=== PATIENT | male | born 1970 | race Caucasian/White ===

== ENCOUNTER 2016-06-03 13:40 | Outpatient (CLI) | payer MEDICAID | END 2016-06-03 13:41 | disposition home or self-care (01) | DX: R07.89 Other chest pain (principal); R91.8 Other nonspecific abnormal finding of lung field ==

== ENCOUNTER 2016-06-10 12:40 | Outpatient (CLI) | payer MEDICAID | END 2016-06-10 12:41 | DX: R07.89 Other chest pain (principal) ==

== ENCOUNTER 2016-06-22 11:20 | Outpatient (CLI) | payer MEDICAID | END 2016-06-22 11:21 | disposition home or self-care (01) | DX: R07.89 Other chest pain (principal); J43.9 Emphysema, unspecified ==

== ENCOUNTER 2017-06-14 11:22 | Outpatient (CLI) | payer MEDICAID ==
[2017-06-14 18:54] LABS: BASOPHILS % (AUTO) 0.3 %; EOSINOPHILS # (AUTO) 0.2 10^3/uL (0.0-0.7); EOSINOPHILS % (AUTO) 2.7 %; HGB - HEMOGLOBIN 16.2 g/dL (14.0-18.0); LYMPHOCYTES # (AUTO) 2.3 10^3/uL (1.5-3.5); MEAN CORPUSCULAR HEMOGLOBIN 31.8 pg (27.0-31.0); MEAN CORPUSCULAR HGB CONC 32.9 g/dL (32.0-36.0); MEAN CORPUSCULAR VOLUME 96.5 fL (80.0-94.0); MEAN PLATELET VOLUME 8.4 fL (7.4-11.4); MONOCYTES # (AUTO) 0.7 10^3/uL (0.0-1.0); MONOCYTES % (AUTO) 8.7 %; NEUTROPHILS # (AUTO) 5.2 10^3/uL (1.5-6.6); NEUTROPHILS % (AUTO) 61.3 %; PLT - PLATELET COUNT 244 10^3/uL (130-450); RED CELL DISTRIBUTION WIDTH 13.5 % (12.0-15.0); WHITE BLOOD COUNT 8.6 x10^3/uL (4.8-10.8)
[2017-06-14 19:16] LABS: ALBUMIN 4.9 g/dL (3.2-5.5); ALBUMIN/GLOBULIN RATIO 1.6 (1.0-2.2); ALKALINE PHOSPHATASE 50 IU/L (42-121); ALT ALANINE AMINOTRANSFERASE 35 IU/L (10-60); AST ASPARTATE AMINOTRANSFERASE 40 IU/L (10-42); BILIRUBIN,TOTAL 1.1 mg/dL (0.2-1.0); BUN - BLOOD UREA NITROGEN 9 mg/dL (6-20); CALCIUM 9.3 mg/dL (8.5-10.3); CARBON DIOXIDE - CO2 28 mmol/L (21-32); CHLORIDE 100 mmol/L (101-111); CHOLESTEROL 259 mg/dL; CREATININE 0.9 mg/dL (0.6-1.2); GFR - MDRD 90 (>89); GLUCOSE 99 mg/dL (70-100); HDL CHOLESTEROL 64 mg/dL; LDL CHOLESTEROL,CALCULATED 171 mg/dL; LDL/HDL RATIO 2.7 (<3.6); SODIUM 139 mmol/L (135-145); TOTAL PROTEIN 7.9 g/dL (6.7-8.2); VLDL CHOLESTEROL 24 mg/dL
== END 2017-06-14 11:23 | disposition home or self-care (01) ==
LOC: LAB.F 11:22
PROVIDERS: ATTEND Nurse Practitioner Family
DX: F10.20 Alcohol dependence, uncomplicated (principal); Z13.6 Encounter for screening for cardiovascular disorders; D72.829 Elevated white blood cell count, unspecified
CPT/HCPCS: 36415; 80053; 80061; 83721; 84443; 85025

== ENCOUNTER 2017-07-28 14:09 | Outpatient (CLI) | payer MEDICAID ==
[2017-07-28 18:23] LABS: ALBUMIN/GLOBULIN RATIO 1.3 (1.0-2.2); BILIRUBIN,TOTAL 0.8 mg/dL (0.2-1.0); CALCIUM 8.8 mg/dL (8.5-10.3); CREATININE 0.6 mg/dL (0.6-1.2); TOTAL PROTEIN 7.2 g/dL (6.7-8.2)
== END 2017-07-28 14:10 | disposition home or self-care (01) ==
LOC: LAB.F 14:09
PROVIDERS: ATTEND Nurse Practitioner Family
DX: E78.5 Hyperlipidemia, unspecified (principal)
CPT/HCPCS: 36415; 80053

== ENCOUNTER 2017-12-17 11:49 | Outpatient (CLI) | payer MEDICAID ==
[2017-12-17 18:11] LABS: ALBUMIN 4.3 g/dL (3.2-5.5); ALBUMIN/GLOBULIN RATIO 1.4 (1.0-2.2); ALKALINE PHOSPHATASE 62 IU/L (42-121); ALT ALANINE AMINOTRANSFERASE 40 IU/L (10-60); AST ASPARTATE AMINOTRANSFERASE 40 IU/L (10-42); BUN - BLOOD UREA NITROGEN 8 mg/dL (6-20); CHOL/HDL RATIO 3.6 (<5.0); CHOLESTEROL 250 mg/dL; CREATININE 0.3 mg/dL (0.6-1.2); GFR - MDRD 321 (>89); HDL CHOLESTEROL 70 mg/dL; LDL CHOLESTEROL,CALCULATED 147 mg/dL; LDL/HDL RATIO 2.1 (<3.6); TOTAL PROTEIN 7.4 g/dL (6.7-8.2); VLDL CHOLESTEROL 33 mg/dL
[2017-12-17 18:17] LABS: CALCIUM 8.8 mg/dL (8.5-10.3); CARBON DIOXIDE - CO2 25 mmol/L (21-32); CHLORIDE 102 mmol/L (101-111); GLUCOSE 114 mg/dL (70-100); SODIUM 137 mmol/L (135-145)
== END 2017-12-17 11:50 | disposition home or self-care (01) ==
LOC: LAB.F 11:49
PROVIDERS: ATTEND Nurse Practitioner Family
DX: E78.5 Hyperlipidemia, unspecified (principal)
CPT/HCPCS: 36415; 80053; 80061; 83721

== ENCOUNTER 2018-03-02 12:15 | Outpatient (CLI) | payer MEDICAID | END 2018-03-02 12:16 | disposition home or self-care (01) | LOC: RT.S 12:15 | PROVIDERS: ATTEND Nurse Practitioner Family | DX: R00.2 Palpitations (principal) | CPT/HCPCS: 93005 ==

== ENCOUNTER 2018-03-02 14:01 | Emergency (ER) | payer MEDICAID ==
[2018-03-02 14:38] LABS: BASOPHILS # (AUTO) 0.1 10^3/uL (0.0-0.1); BASOPHILS % (AUTO) 0.7 %; EOSINOPHILS # (AUTO) 0.1 10^3/uL (0.0-0.7); EOSINOPHILS % (AUTO) 1.2 %; HGB - HEMOGLOBIN 14.6 g/dL (14.0-18.0); LYMPHOCYTES # (AUTO) 2.9 10^3/uL (1.5-3.5); LYMPHOCYTES % (AUTO) 26.3 %; MEAN CORPUSCULAR HEMOGLOBIN 32.7 pg (27.0-31.0); MEAN CORPUSCULAR HGB CONC 34.4 g/dL (32.0-36.0); MEAN CORPUSCULAR VOLUME 94.8 fL (80.0-94.0); MEAN PLATELET VOLUME 7.8 fL (7.4-11.4); MONOCYTES # (AUTO) 0.9 10^3/uL (0.0-1.0); MONOCYTES % (AUTO) 8.4 %; NEUTROPHILS % (AUTO) 63.4 %; PLT - PLATELET COUNT 215 10^3/uL (130-450); RED BLOOD COUNT 4.48 10^6/uL (4.70-6.10); RED CELL DISTRIBUTION WIDTH 12.7 % (12.0-15.0); WHITE BLOOD COUNT 11.1 x10^3/uL (4.8-10.8)
[2018-03-02 14:50] LABS: ALBUMIN 4.5 g/dL (3.2-5.5); ALBUMIN/GLOBULIN RATIO 1.4 (1.0-2.2); BILIRUBIN,TOTAL 0.6 mg/dL (0.2-1.0); CALCIUM 9.1 mg/dL (8.5-10.3); CREATININE 0.6 mg/dL (0.6-1.2); TOTAL PROTEIN 7.8 g/dL (6.7-8.2)
--- NOTE | 2018-03-02 15:59 | ED Physician Documentation ---
PD HPI CHEST PAIN - Stated complaint Stated Complaint: LEG PX/RAPID HR - Chief complaint Chief Complaint: Cardiac - History obtained from History obtained from: Patient - History of Present Illness Timing - onset: How many days ago Timing - onset during: Light activity Timing - duration: Days PD PAST MEDICAL HISTORY - Past Medical History Respiratory: COPD GI: GERD Psych: Depression - Past Surgical History Past Surgical History: No - Present Medications Home Medications: Ambulatory Orders Medication Instructions Recorded Confirmed Omeprazole 20 mg PO DAILY 06/01/14 03/02/18 buPROPion [Wellbutrin Xl] 150 mg PO DAILY 06/01/14 03/02/18 Albuterol Sulfate [Proair Hfa] 1 puffs IS PRN PRN 08/20/14 03/02/18 Beclomethasone 40 Mcg [Qvar 40] 1 puffs IS PRN PRN 08/20/14 03/02/18 ALPRAZolam [Alprazolam] 0.5 tab PO PRN PRN 03/02/18 03/02/18 Aspirin [Adult Low Dose Aspirin EC] 81 mg PO DAILY #30 tablet. 03/02/18 Dexamethasone [Decadron] 4 mg PO DAILY #5 tablet 03/02/18 Metoprolol Tartrate 25 mg PO DAILY #30 tablet 03/02/18 - Allergies Allergies/Adverse Reactions: Allergies Allergy/AdvReac Type Severity Reaction Status Date / Time No Known Drug Allergies Allergy Verified 03/02/18 14:25 - Social History Does the pt smoke?: Yes Smoking Status: Current every day smoker Does the pt drink ETOH?: Yes Does the pt have substance abuse?: Yes - Immunizations Immunizations are current?: Yes - POLST Patient has POLST: No Results - Vitals Vitals: Oxygen O2 Source Room air - Labs Labs: Laboratory Tests 03/02/18 03/02/18 03/02/18 14:33 14:33 14:33 WBC 11.1 H RBC 4.48 L Hgb 14.6 Hct 42.5 MCV 94.8 H MCH 32.7 H MCHC 34.4 RDW 12.7 Plt Count 215 MPV 7.8 Neut # (Auto) 7.0 H Lymph # (Auto) 2.9 [place] # (Auto) 0.9 Eos # (Auto) 0.1 Baso # (Auto) 0.1 Absolute Nucleated RBC 0.00 Nucleated RBC % 0.0 D-Dimer Sodium 134 L Potassium 3.4 L Chloride 102 Carbon Dioxide 21 Anion Gap 11.0 BUN 7 Creatinine 0.6 Estimated GFR (MDRD) 144 Glucose 120 H Calcium 9.1 Magnesium Total Bilirubin 0.6 AST 46 H ALT 63 H Alkaline Phosphatase 57 Troponin I < 0.04 B-Natriuretic Peptide Total Protein 7.8 Albumin 4.5 Globulin 3.3 Albumin/Globulin Ratio 1.4 Lipase 63 H 03/02/18 03/02/18 03/02/18 14:33 14:33 14:33 WBC RBC Hgb Hct MCV MCH MCHC RDW Plt Count MPV Neut # (Auto) Lymph # (Auto) [place] # (Auto) Eos # (Auto) Baso # (Auto) Absolute Nucleated RBC Nucleated RBC % D-Dimer < 200.0 L Sodium Potassium Chloride Carbon Dioxide Anion Gap BUN Creatinine Estimated GFR (MDRD) Glucose Calcium Magnesium 2.4 Total Bilirubin AST ALT Alkaline Phosphatase Troponin I B-Natriuretic Peptide 19 Total Protein Albumin Globulin Albumin/Globulin Ratio Lipase Departure - Departure Disposition: Home, Self Care Clinical Impression: Exertional dyspnea Condition: Stable Record reviewed to determine appropriate education?: Yes Instructions: ED Dyspnea Shortness of Breath Follow-Up: Nina Gordon ARNP [Primary Care Provider] - Prescriptions: Aspirin [Adult Low Dose Aspirin EC] 81 mg PO DAILY #30 tablet. Dexamethasone [Decadron] 4 mg PO DAILY #5 tablet Metoprolol Tartrate 25 mg PO DAILY #30 tablet Comments: There are no signs of heart attack or acute heart disease or heart failure here. Your lungs look clear as well based on your x-ray. You your dyspnea may be related to your COPD and so continue your normal inhalers and add Decadron steroid daily for the next 5 days and see if that helps. The concern is that it might be angina or heart disease and that would require further testing such as a stress test and ultrasound of the heart (echo). These would need to get set up outpatient by your primary care physician or potentially a referral to a film loader. Call your primary care clinic tomorrow to have them set up outpatient testing for stress test and echocardiogram to better evaluate if there is any heart disease at all. In case there is some heart disease, will treat initially with an aspirin and metoprolol daily until further evaluation. Discharge Date/Time: 03/02/18 18:31
[2018-03-02] MEDS ORDERED: METOPROLOL 5 MG/5 ML VIAL IVP STA (16:28)
[2018-03-02] MEDS ORDERED: KETOROLAC 30 MG/ML VIAL IVP STA (16:28)
--- NOTE | 2018-03-02 16:55 | XRAY Report ---
Reason: NICOLE, sob Procedure Date: 03/02/2018 Accession Number: [id number] / [id number] Procedure: XR - Chest 1 View X-Ray CPT Code: 99697 FULL RESULT: EXAM: CHEST RADIOGRAPHY EXAM DATE: 03/02/2018 04:38 PM. CLINICAL HISTORY: Chest pain. Shortness of breath. COMPARISON: [facility]BS W/PA CHEST RT 08/20/2014 2:24 PM CHEST W/O 06/22/2016 11:31 AM. TECHNIQUE: 1 view. FINDINGS: Cardiac leads overlie the chest. Heart size is normal. Small calcified plaques in the aortic arch. No consolidation, pleural effusion, or pneumothorax. Probable nipple shadow projecting over the left lung base. IMPRESSION: No acute cardiopulmonary findings. RADIA
[2018-03-02] MEDS ORDERED: METOPROLOL TARTRATE 50 MG TABLET PO STA (18:05)
[2018-03-02] MEDS ORDERED: ASPIRIN EC 81 MG TABLET PO STA (18:05)
[2018-03-02 18:24] VITALS: BP 121/91
== END 2018-03-02 18:31 | disposition home or self-care (01) ==
LOC: ED 14:01
DX: R06.09 Other forms of dyspnea (principal); R00.0 Tachycardia, unspecified; R00.2 Palpitations; F17.200 Nicotine dependence, unspecified, uncomplicated; Z79.82 Long term (current) use of aspirin
CPT/HCPCS: 36415; 71045; 80053; 83690; 83735; 83880; 84484; 85025; 85379; 93005; 96374; 96375; 99283; 99284; A9270

== ENCOUNTER 2018-04-06 09:18 | Outpatient (CLI) | payer MEDICAID | END 2018-04-06 09:19 | disposition home or self-care (01) | LOC: DI 09:18 | PROVIDERS: ATTEND Nurse Practitioner Family | DX: R07.89 Other chest pain (principal) | CPT/HCPCS: 93306 ==

== ENCOUNTER 2018-05-03 13:15 | Emergency (ER) | payer MEDICAID ==
[2018-05-03 13:39] LABS: BILIRUBIN,URINE NEGATIVE (NEGATIVE); CLARITY,URINE CLEAR (CLEAR); GLUCOSE, URINE (UA) NEGATIVE (NEGATIVE); KETONES,URINE (UA) NEGATIVE (NEGATIVE); LEUKOCYTE ESTERASE, URINE NEGATIVE (NEGATIVE); NITRITE,URINE NEGATIVE (NEGATIVE); OCCULT BLOOD,URINE NEGATIVE (NEGATIVE); PROTEIN,URINE NEGATIVE (NEGATIVE); UROBILINOGEN,URINE 0.2 (NORMAL) E.U./dL (NORMAL)
[2018-05-03 13:47] LABS: BASOPHILS # (AUTO) 0.1 10^3/uL (0.0-0.1); BASOPHILS % (AUTO) 0.7 %; EOSINOPHILS # (AUTO) 0.1 10^3/uL (0.0-0.7); EOSINOPHILS % (AUTO) 1.1 %; HGB - HEMOGLOBIN 15.3 g/dL (14.0-18.0); LYMPHOCYTES # (AUTO) 2.2 10^3/uL (1.5-3.5); MEAN CORPUSCULAR HEMOGLOBIN 32.8 pg (27.0-31.0); MEAN CORPUSCULAR HGB CONC 34.6 g/dL (32.0-36.0); MEAN CORPUSCULAR VOLUME 94.8 fL (80.0-94.0); MEAN PLATELET VOLUME 7.7 fL (7.4-11.4); MONOCYTES # (AUTO) 0.8 10^3/uL (0.0-1.0); MONOCYTES % (AUTO) 7.6 %; NEUTROPHILS # (AUTO) 6.9 10^3/uL (1.5-6.6); NEUTROPHILS % (AUTO) 68.6 %; PLT - PLATELET COUNT 222 10^3/uL (130-450); RED BLOOD COUNT 4.66 10^6/uL (4.70-6.10); RED CELL DISTRIBUTION WIDTH 13.1 % (12.0-15.0); WHITE BLOOD COUNT 10.1 x10^3/uL (4.8-10.8)
[2018-05-03 14:00] LABS: ALBUMIN 4.5 g/dL (3.2-5.5); ALBUMIN/GLOBULIN RATIO 1.4 (1.0-2.2); BILIRUBIN,TOTAL 0.7 mg/dL (0.2-1.0); CALCIUM 9.1 mg/dL (8.5-10.3); CREATININE 0.6 mg/dL (0.6-1.2); TOTAL PROTEIN 7.7 g/dL (6.7-8.2)
--- NOTE | 2018-05-03 15:17 | ED Physician Documentation ---
History of Present Illness - Stated complaint Stated Complaint: UPPER RT SIDE PX/SOA - Chief complaint Chief Complaint: Abd Pain - Additonal information Additional information: 48-year-old male presents the emergency department with complaints of right upper quadrant painWhich have progressively worsened. The patient reports increased pain with movement. The patient denies any recent trauma or injury. The patient denies fevers, cough. The pain radiates into his lower abdomen. Patient denies hematuria. Symptoms are described as moderate. No other associated symptoms Review of Systems Constitutional: denies: Fever, Chills, Fatigue Eyes: denies: Discharge Ears: denies: Ear pain Nose: denies: Congestion Throat: denies: Sore throat Cardiac: denies: Chest pain / pressure Respiratory: denies: Dyspnea GI: reports: Abdominal Pain : denies: Dysuria Skin: denies: Rash Musculoskeletal: denies: Neck pain Neurologic: denies: Generalized weakness PD PAST MEDICAL HISTORY - Past Medical History Respiratory: COPD GI: GERD Psych: Depression - Past Surgical History Past Surgical History: No - Present Medications Home Medications: Ambulatory Orders Medication Instructions Recorded Confirmed Omeprazole 20 mg PO DAILY 06/01/14 03/02/18 buPROPion [Wellbutrin Xl] 150 mg PO DAILY 06/01/14 03/02/18 Albuterol Sulfate [Proair Hfa] 1 puffs IS PRN PRN 08/20/14 03/02/18 Beclomethasone 40 Mcg [Qvar 40] 1 puffs IS PRN PRN 08/20/14 03/02/18 ALPRAZolam [Alprazolam] 0.5 tab PO PRN PRN 03/02/18 03/02/18 Aspirin [Adult Low Dose Aspirin EC] 81 mg PO DAILY #30 tablet. 03/02/18 Dexamethasone [Decadron] 4 mg PO DAILY #5 tablet 03/02/18 Metoprolol Tartrate 25 mg PO DAILY #30 tablet 03/02/18 Hydrocodone/Acetaminophen [[place] 1 each PO Q6HR PRN #10 tablet 05/03/18 5-325 Tablet] - Allergies Allergies/Adverse Reactions: Allergies Allergy/AdvReac Type Severity Reaction Status Date / Time No Known Drug Allergies Allergy Verified 05/03/18 13:30 - Social History Does the pt smoke?: Yes Smoking Status: Current every day smoker Does the pt drink ETOH?: Yes Does the pt have substance abuse?: Yes - Immunizations Immunizations are current?: Yes - POLST Patient has POLST: No PD ED PE NORMAL - General General: Alert and oriented X 3, No acute distress - HEENT HEENT: Atraumatic, PERRL, EOMI, Ears normal, Pharynx benign - Cardiac Cardiac: RRR, Strong equal pulses - Respiratory Respiratory: No respiratory distress - Abdomen Abdomen: Soft, Non distended. No: Non tender (Tender palpation in the right upper abdomen, no rebound or peritoneal signs) - Derm Derm: Normal color - Extremities Extremities: No deformity - Neuro Neuro: Alert and oriented X 3, Normal speech - Psych Psych: Normal affect Results - Vitals Vitals: Vital Signs - 24 hr 05/03/18 05/03/18 05/03/18 13:24 16:02 16:45 Temperature 36.6 C Heart Rate 89 82 79 Respiratory 16 20 18 Rate Blood Pressure 131/89 H 143/90 H 121/84 H O2 Saturation 97 94 97 Oxygen O2 Source Room air - Labs Labs: Laboratory Tests 05/03/18 05/03/18 05/03/18 13:22 13:44 13:44 WBC 10.1 RBC 4.66 L Hgb 15.3 Hct 44.2 MCV 94.8 H MCH 32.8 H MCHC 34.6 RDW 13.1 Plt Count 222 MPV 7.7 Neut # (Auto) 6.9 H Lymph # (Auto) 2.2 [place] # (Auto) 0.8 Eos # (Auto) 0.1 Baso # (Auto) 0.1 Absolute Nucleated RBC 0.00 Nucleated RBC % 0.0 Sodium 134 L Potassium 3.5 Chloride 101 Carbon Dioxide 23 Anion Gap 10.0 BUN 5 L Creatinine 0.6 Estimated GFR (MDRD) 144 Glucose 113 H Calcium 9.1 Total Bilirubin 0.7 AST 55 H ALT 50 Alkaline Phosphatase 68 Total Protein 7.7 Albumin 4.5 Globulin 3.2 Albumin/Globulin Ratio 1.4 Lipase 80 H Urine Color YELLOW Urine Clarity CLEAR Urine pH 6.0 Ur Specific [place] <=1.005 Urine Protein NEGATIVE Urine Glucose (UA) NEGATIVE Urine Ketones NEGATIVE Urine Occult Blood NEGATIVE Urine Nitrite NEGATIVE Urine Bilirubin NEGATIVE Urine Urobilinogen 0.2 (NORMAL) Ur Leukocyte Esterase NEGATIVE Ur Microscopic Review NOT INDICATED Urine Culture Comments NOT INDICATED - Rads (name of study) CT abd/pelvis Radiology: Final report received, See rad report (1. No evidence of appendicitis or bowel obstruction. 2. There is hepatic steatosis. 3. There are atheromatous calcifications of the low aorta, renal arteries, and iliac arteries. 4. There is moderatedistention of the urinary bladder) PD MEDICAL DECISION MAKING - ED course ED course: No significant abnormality on the patient's workup that would necessitate admission to the hospital or acute consultation. Presently the patient appears appropriate for discharge and ongoing outpatient management. I discussed the findings with the patient who understands and agrees. The patient will return to the emergency department immediately for any worsening or any concerns. I discussed the incidental findings and recommended ongoing follow-up with primary care Departure - Departure Disposition: 01 Home, Self Care Clinical Impression: RUQ pain, Fatty liver, Aortic calcification Condition: Good Instructions: ED Abdominal Pain Unkn Cause, ED Strain Chest Wall Ch Follow-Up: Francine Moreno DNP [Primary Care Provider] - Within 1 week Prescriptions: Hydrocodone/Acetaminophen [[place] 5-325 Tablet] 1 each PO Q6HR PRN #10 tablet PRN Reason: Pain Comments: Please return to the emergency department for any worsening or any concerns
[2018-05-03] MEDS ORDERED: fentaNYL 100 MCG/2 ML VIAL IVP STA (15:27)
[2018-05-03] MEDS ORDERED: SODIUM CHLORIDE 0.9% 1,000 ML IV ONE (15:27)
[2018-05-03] MEDS ORDERED: ONDANSETRON 4 MG/2 ML VIAL IVP STA (15:27)
[2018-05-03] MEDS ORDERED: IOPAMIDOL-300 100 ML VIAL ONE (15:36)
--- NOTE | 2018-05-03 16:29 | CT Report ---
Reason: ruq pain Procedure Date: 05/03/2018 Accession Number: [id number] / [id number] Procedure: CT - Abdomen/Pelvis W CPT Code: FULL RESULT: EXAM: CT ABDOMEN AND PELVIS EXAM DATE: 05/03/2018 04:02 PM. CLINICAL HISTORY: Abdominal pain COMPARISONS: ABDOMEN/PELVIS W/O 04/20/2015 1:38 AM. TECHNIQUE: Routine helical CT imaging was performed through the abdomen and pelvis. IV contrast: ISOVUE 300 100mL. Enteric contrast: No. Reconstructions: Coronal and sagittal. In accordance with CT protocol optimization, one or more of the following dose reduction techniques were utilized for this exam: automated exposure control, adjustment of mA and/or KV based on patient size, or use of iterative reconstructive technique. FINDINGS: Lung Bases: Unremarkable. Liver: There is hepatic steatosis. No focal hepatic lesions are seen. Gallbladder/Bile Ducts: Unremarkable. Spleen: Normal. Pancreas: Normal. Adrenal Glands: Normal. Kidneys: Normal. No masses or hydronephrosis. Peritoneal Cavity/Bowel: Normal. No free fluid, free air or adenopathy. No masses or acute inflammatory process. The appendix is well visualized and normal. Pelvic Organs: There is moderate distention of the urinary bladder. Prostate and seminal vesicles are unremarkable. There are no enlarged pelvic lymph nodes. Vasculature: There are atheromatous calcifications of the aorta and iliac vessels. Bones: No acute bony abnormalities are seen. There is lower lumbar spine degenerative disease. Other: None. IMPRESSION: 1. No evidence of appendicitis or bowel obstruction. 2. There is hepatic steatosis. 3. There are atheromatous calcifications of the low aorta, renal arteries, and iliac arteries. 4. There is moderate distention of the urinary bladder. RADIA
[2018-05-03 16:46] VITALS: BP 121/84
[2018-05-03] MEDS ORDERED: HYDROcod/ACETAM 5/325 MG TABLET PO STA (16:57)
[2018-05-03] MEDS ORDERED: IOPAMIDOL-300 100 ML VIAL IVP ONE (18:13)
== END 2018-05-03 17:16 | disposition home or self-care (01) ==
LOC: ED 13:15
DX: R10.11 Right upper quadrant pain (principal); K76.0 Fatty (change of) liver, not elsewhere classified; I70.0 Atherosclerosis of aorta; F17.200 Nicotine dependence, unspecified, uncomplicated; K21.9 Gastro-esophageal reflux disease without esophagitis; Z79.82 Long term (current) use of aspirin
CPT/HCPCS: 36415; 74177; 80053; 81003; 83690; 85025; 96361; 96374; 99284; A9270; Q9967; 81001; 87086

== ENCOUNTER 2018-07-19 19:13 | Emergency (ER) | payer MEDICAID ==
--- NOTE | 2018-07-19 19:40 | ED Physician Documentation ---
History of Present Illness - Stated complaint Stated Complaint: FAINTING - Chief complaint Chief Complaint: Cardiac - History obtained from History obtained from: Patient - History of Present Illness Timing: Unknown - Additonal information Additional information: This is a 48-year-old man who presents with his mother. He tells me he is having problems in his lower abdomen, mid chest, stomach, bladder. In addition to these problems he is having diarrhea that is been for ever and ever sometimes to the point that it water. He is urinating a lot and it turned orange today. He feels a tickling [id number] sensation all over his head and head along with a headache on the left side of his head he feels so dizzy and lightheaded when he stands up in the middle of the night that he thinks he is going to pass out. He has not asked actually lost consciousness. He is feeling electrical shocks that passed all through his body. He denies a history of anemia in the past. He does state that he is been heavy alcohol drinker for the past 8 years But he is now cut back to 10-14 beers a day. He has been diagnosed with neuropathy by a neurologist 8 years ago and he has had uncontrollable twitchings that he thought was related to Christy Gehrig's disease but was ruled out by the neurologist. Patient also has a history of esophagitis and has been on omep razole for 4 years he was referred for endoscopy because he of these above complaints and the referral referral physician will not see him because of an unpaid bill so he is looking for another gastroneurologist.He has had 2 colon endoscopies in the past with polyp removals. Review of Systems Constitutional: denies: Fever Throat: denies: Sore throat Cardiac: denies: Chest pain / pressure Respiratory: reports: Dyspnea, Cough, Wheezing GI: reports: Abdominal Pain, Nausea. denies: Vomiting : reports: Frequency, Other (Dark orange appearing urine) Skin: denies: Rash Neurologic: reports: Headache, Other (Electrical shocks through his body and history of neuropathy). denies: Syncope PD PAST MEDICAL HISTORY - Past Medical History Respiratory: COPD GI: GERD Psych: Depression - Past Surgical History Past Surgical History: No - Present Medications Home Medications: Ambulatory Orders Medication Instructions Recorded Confirmed Omeprazole 20 mg PO DAILY 06/01/14 03/02/18 buPROPion [Wellbutrin Xl] 150 mg PO DAILY 06/01/14 03/02/18 Albuterol Sulfate [Proair Hfa] 1 puffs IS PRN PRN 08/20/14 03/02/18 Beclomethasone 40 Mcg [Qvar 40] 1 puffs IS PRN PRN 08/20/14 03/02/18 ALPRAZolam [Alprazolam] 0.5 tab PO PRN PRN 03/02/18 03/02/18 Aspirin [Adult Low Dose Aspirin EC] 81 mg PO DAILY #30 tablet. 03/02/18 Metoprolol Tartrate 25 mg PO DAILY #30 tablet 03/02/18 dexAMETHasone [Decadron] 4 mg PO DAILY #5 tablet 03/02/18 Hydrocodone/Acetaminophen [[place] 1 each PO Q6HR PRN #10 tablet 05/03/18 5-325 Tablet] - Allergies Allergies/Adverse Reactions: Allergies Allergy/AdvReac Type Severity Reaction Status Date / Time No Known Drug Allergies Allergy Verified 05/03/18 13:30 - Social History Does the pt smoke?: Yes Smoking Status: Current every day smoker Does the pt drink ETOH?: Yes Does the pt have substance abuse?: Yes - Immunizations Immunizations are current?: Yes - POLST Patient has POLST: No PD ED PE NORMAL - Vitals Vital signs reviewed: Yes (Smells strongly of EtoH) - General General: Alert and oriented X 3, No acute distress, Well developed/nourished - HEENT HEENT: Atraumatic, PERRL, EOMI, Moist mucous membranes - Neck Neck: No adenopathy - Cardiac Cardiac: RRR, No murmur - Respiratory Respiratory: No respiratory distress - Abdomen Abdomen: Normal bowel sounds, Soft, Other (Liver is enlarged and 5-6 cm below costal margin. + tenderness) - Derm Derm: Normal color, No rash - Neuro Neuro: Alert and oriented X 3, field marketing manager 2-12 intact, No motor deficit, No sensory deficit, Normal speech - Psych Psych: Normal mood, Normal affect Results - Vitals Vitals: Vital Signs - 24 hr 07/19/18 19:18 Temperature 36.3 C L Heart Rate 94 Respiratory 16 Rate Blood Pressure 145/95 H O2 Saturation 99 Oxygen O2 Source Room air - EKG (time done) 1928 Rate: Rate (enter#) Rhythm: Sinus tachycardia (With sinus arrhythmia) Intervals: Normal [place]. No: Wide QRS Ischemia: Non specific changes Other comments: Other comments (There is some baseline artifact.) Compare to prior EKG: Old EKG unavailable - Labs Labs: Laboratory Tests 07/19/18 07/19/18 07/19/18 19:34 19:34 19:34 WBC 7.9 RBC 4.65 L Hgb 15.0 Hct 44.0 MCV 94.6 H MCH 32.2 H MCHC 34.1 RDW 13.2 Plt Count 145 MPV 8.4 Neut # (Auto) 4.4 Lymph # (Auto) 2.5 [place] # (Auto) 0.9 Eos # (Auto) 0.2 Baso # (Auto) 0.0 Absolute Nucleated RBC 0.01 Nucleated RBC % 0.1 Sodium 131 L Potassium 3.1 L Chloride 95 L Carbon Dioxide 22 Anion Gap 14.0 H BUN 5 L Creatinine 0.7 Estimated GFR (MDRD) 120 Glucose 85 Calcium 9.0 Phosphorus Magnesium Total Bilirubin 1.1 H AST 254 H ALT 189 H Alkaline Phosphatase 82 Troponin I < 0.04 Total Protein 7.5 Albumin 4.3 Globulin 3.2 Albumin/Globulin Ratio 1.3 Lipase 100 H Urine Color Urine Clarity Urine pH Ur Specific [place] Urine Protein Urine Glucose (UA) Urine Ketones Urine Occult Blood Urine Nitrite Urine Bilirubin Urine Urobilinogen Ur Leukocyte Esterase Urine RBC Urine WBC Ur Squamous Epith Cells Urine Bacteria Ur Microscopic Review Urine Culture Comments Urine Opiates Screen Ur Oxycodone Screen Urine Methadone Screen Ur Propoxyphene Screen Ur Barbiturates Screen Ur Tricyclics Screen Ur Phencyclidine Scrn Ur Amphetamine Screen U Methamphetamines Scrn U Benzodiazepines Scrn Urine Cocaine Screen U Cannabinoids Screen Ethyl Alcohol 07/19/18 07/19/18 19:34 20:30 WBC RBC Hgb Hct MCV MCH MCHC RDW Plt Count MPV Neut # (Auto) Lymph # (Auto) [place] # (Auto) Eos # (Auto) Baso # (Auto) Absolute Nucleated RBC Nucleated RBC % Sodium Potassium Chloride Carbon Dioxide Anion Gap BUN Creatinine Estimated GFR (MDRD) Glucose Calcium Phosphorus 3.6 Magnesium 1.9 Total Bilirubin AST ALT Alkaline Phosphatase Troponin I Total Protein Albumin Globulin Albumin/Globulin Ratio Lipase Urine Color YELLOW Urine Clarity CLEAR Urine pH 6.0 Ur Specific [place] <=1.005 Urine Protein NEGATIVE Urine Glucose (UA) NEGATIVE Urine Ketones NEGATIVE Urine Occult Blood NEGATIVE Urine Nitrite NEGATIVE Urine Bilirubin NEGATIVE Urine Urobilinogen 0.2 (NORMAL) Ur Leukocyte Esterase NEGATIVE Urine RBC None Seen Urine WBC 0-3 Ur Squamous Epith Cells RARE Squamous Urine Bacteria None Seen Ur Microscopic Review NOT INDICATED Urine Culture Comments NOT INDICATED Urine Opiates Screen NEGATIVE Ur Oxycodone Screen NEGATIVE Urine Methadone Screen NEGATIVE Ur Propoxyphene Screen NEGATIVE Ur Barbiturates Screen NEGATIVE Ur Tricyclics Screen NEGATIVE Ur Phencyclidine Scrn NEGATIVE Ur Amphetamine Screen NEGATIVE U Methamphetamines Scrn NEGATIVE U Benzodiazepines Scrn NEGATIVE Urine Cocaine Screen NEGATIVE U Cannabinoids Screen POSITIVE H Ethyl Alcohol 232.8 PD MEDICAL DECISION MAKING - ED course Complexity details: d/w patient, d/w family ED course: Patient does have elevated lipase at 100, bilirubin is mildly elevated and liver enzymes are elevated. He is eaten in the past 3 hours so he is really not a candidate to have an ultrasound done tonight. He is not vomiting. I am attempting to contact his primary care provider about a outpatient ultrasound but have not heard from them. Care turned over to Dr Davis. Departure - Departure Follow-Up: Francine Moreno DNP [Primary Care Provider] - Comments: Stop drinking. Eat a bland diet avoiding fatty and fried foods. Contact your primary care provider for follow-up tomorrow regarding the elevated liver enzymes and alcoholic hepatitis.Return to the emergency department if you have vomiting and cannot keep anything down, develop a fever or other problems arise.
[2018-07-19 19:52] LABS: ALBUMIN 4.3 g/dL (3.2-5.5); ALBUMIN/GLOBULIN RATIO 1.3 (1.0-2.2); BASOPHILS % (AUTO) 0.6 %; BILIRUBIN,TOTAL 1.1 mg/dL (0.2-1.0); CREATININE 0.7 mg/dL (0.6-1.2); EOSINOPHILS # (AUTO) 0.2 10^3/uL (0.0-0.7); EOSINOPHILS % (AUTO) 2.1 %; LYMPHOCYTES # (AUTO) 2.5 10^3/uL (1.5-3.5); LYMPHOCYTES % (AUTO) 31.6 %; MEAN CORPUSCULAR HEMOGLOBIN 32.2 pg (27.0-31.0); MEAN CORPUSCULAR HGB CONC 34.1 g/dL (32.0-36.0); MEAN CORPUSCULAR VOLUME 94.6 fL (80.0-94.0); MEAN PLATELET VOLUME 8.4 fL (7.4-11.4); MONOCYTES # (AUTO) 0.9 10^3/uL (0.0-1.0); MONOCYTES % (AUTO) 10.8 %; NEUTROPHILS # (AUTO) 4.4 10^3/uL (1.5-6.6); NEUTROPHILS % (AUTO) 54.9 %; PLT - PLATELET COUNT 145 10^3/uL (130-450); RED BLOOD COUNT 4.65 10^6/uL (4.70-6.10); RED CELL DISTRIBUTION WIDTH 13.2 % (12.0-15.0); TOTAL PROTEIN 7.5 g/dL (6.7-8.2); WHITE BLOOD COUNT 7.9 x10^3/uL (4.8-10.8)
[2018-07-19 20:32] LABS: MUDS CUTOFF CONCENTRATIONS CUTOFF CONC BELOW:
[2018-07-19 20:36] LABS: BILIRUBIN,URINE NEGATIVE (NEGATIVE); GLUCOSE, URINE (UA) NEGATIVE (NEGATIVE); KETONES,URINE (UA) NEGATIVE (NEGATIVE); LEUKOCYTE ESTERASE, URINE NEGATIVE (NEGATIVE); NITRITE,URINE NEGATIVE (NEGATIVE); OCCULT BLOOD,URINE NEGATIVE (NEGATIVE); PROTEIN,URINE NEGATIVE (NEGATIVE); UROBILINOGEN,URINE 0.2 (NORMAL) E.U./dL (NORMAL)
[2018-07-19 20:37] LABS: CLARITY,URINE CLEAR (CLEAR)
[2018-07-19 20:40] LABS: MAGNESIUM 1.9 mg/dL (1.7-2.8); PHOSPHORUS 3.6 mg/dL (2.5-4.6)
[2018-07-19 21:00] LABS: BACTERIA,URINE None Seen /HPF (None Seen); RBC,URINE None Seen /HPF (0-5); SQUAMOUS EPITHELIAL CELL,UR RARE Squamous (<= Few)
[2018-07-19 21:15] LABS: AMPHETAMINE SCREEN,URINE NEGATIVE (NEGATIVE); BENZODIAZEPINES SCREEN, URINE NEGATIVE (NEGATIVE); COCAINE SCREEN URINE NEGATIVE (NEGATIVE); METHADONE SCREEN, URINE NEGATIVE (NEGATIVE); METHAMPHETAMINES SCREEN, URINE NEGATIVE (NEGATIVE); OPIATE SCREEN, URINE NEGATIVE (NEGATIVE); OXYCODONE SCREEN, URINE NEGATIVE (NEGATIVE); PROPOXYPHENE SCREEN, URINE NEGATIVE (NEGATIVE); TRICYCLIC ANTIDEPRESSANT,URINE NEGATIVE (NEGATIVE)
[2018-07-19] MEDS ORDERED: POTASSIUM CHLORIDE 20 MEQ TABLET PO ONE (23:03)
--- NOTE | 2018-07-20 | Ultrasound Report ---
Reason: RUQ pain, elevated liver enz and lipase Procedure Date: 07/19/2018 Accession Number: [id number] / [id number] Procedure: US - Abdomen Limited CPT Code: FULL RESULT: EXAM: ABDOMEN ULTRASOUND LIMITED, RUQ EXAM DATE: 07/19/2018 11:33 PM. CLINICAL HISTORY: RUQ pain, elevated liver enzymes and lipase. COMPARISON: None. TECHNIQUE: Real-time scanning was performed with static images obtained. FINDINGS: Liver: Fatty infiltration. 19.2 cm. Main portal vein flow: Hepatopetal. Gallbladder: Normal. No stones, wall thickening, or sonographic Fritz's sign. Biliary System: CBD measures 5 mm. No intrahepatic or extrahepatic ductal dilatation. Other: Right kidney measures 10.6 cm and appears normal. Visualized portions of the pancreas are unremarkable. Inferior vena cava is patent where seen. IMPRESSION: 1. No cholelithiasis or cholecystitis. 2. No biliary dilatation seen. 3. Large fatty liver. RADIA
[2018-07-20 00:08] VITALS: BP 120/70
--- NOTE | 2018-07-20 00:30 | ED Physician Documentation ---
ED Addendum - Addendum Addendum: 07/20/18 00:28 Assumed care from the prior ER physician. Following up on the ultrasound results: The ultrasound showed no signs of gallstones or acute cholecystitis and the bile duct was normal. Presume his elevated liver enzymes and pancreas enzymes are from alcohol. He has been on omeprazole for long-term as well and so that could potentially relate although the alcohol would be more obvious. The patient is seeing his primary care tomorrow or in the next couple of days. He can add sucralfate at nighttime to help reduce some of the morning nausea and vomiting he has had for a couple of months. He can use ondansetron as well. Obviously less alcohol in the evening would reduce his stomach irritation and less morning vomiting as well. I discussed these points with him. He is doing well at this time without any significant pain and no nausea at this time. There is no indication for hospitalization at this point.
== END 2018-07-20 00:43 | disposition home or self-care (01) ==
LOC: ED 19:13
DX: K85.20 Alcohol induced acute pancreatitis without necrosis or infection (principal); K70.10 Alcoholic hepatitis without ascites; F10.288 Alcohol dependence with other alcohol-induced disorder; R42 Dizziness and giddiness; R00.0 Tachycardia, unspecified; K21.9 Gastro-esophageal reflux disease without esophagitis; F17.200 Nicotine dependence, unspecified, uncomplicated
CPT/HCPCS: 36415; 76705; 80053; 80306; 80320; 81001; 81003; 83690; 83735; 84100; 84484; 85025; 93005; 99283; 99284; A9270; 87086

== ENCOUNTER 2018-08-02 11:59 | Outpatient (CLI) | payer MEDICAID ==
[2018-08-02 18:03] LABS: BASOPHILS # (AUTO) 0.1 10^3/uL (0.0-0.1); EOSINOPHILS # (AUTO) 0.3 10^3/uL (0.0-0.7); EOSINOPHILS % (AUTO) 3.3 %; HGB - HEMOGLOBIN 15.1 g/dL (14.0-18.0); LYMPHOCYTES % (AUTO) 25.3 %; MEAN CORPUSCULAR HEMOGLOBIN 31.5 pg (27.0-31.0); MEAN CORPUSCULAR HGB CONC 31.8 g/dL (32.0-36.0); MEAN PLATELET VOLUME 10.3 fL (7.4-11.4); MONOCYTES # (AUTO) 0.8 10^3/uL (0.0-1.0); MONOCYTES % (AUTO) 9.9 %; NEUTROPHILS # (AUTO) 4.8 10^3/uL (1.5-6.6); NEUTROPHILS % (AUTO) 59.9 %; PLT - PLATELET COUNT 305 10^3/uL (130-450); RED CELL DISTRIBUTION WIDTH 13.2 % (12.0-15.0); WHITE BLOOD COUNT 8.1 x10^3/uL (4.8-10.8)
[2018-08-02 18:28] LABS: ALBUMIN 4.2 g/dL (3.2-5.5); ALBUMIN/GLOBULIN RATIO 1.3 (1.0-2.2); ALKALINE PHOSPHATASE 64 IU/L (42-121); ALT ALANINE AMINOTRANSFERASE 91 IU/L (10-60); AST ASPARTATE AMINOTRANSFERASE 75 IU/L (10-42); BILIRUBIN,TOTAL 0.6 mg/dL (0.2-1.0); BUN - BLOOD UREA NITROGEN 6 mg/dL (6-20); CALCIUM 9.3 mg/dL (8.5-10.3); CARBON DIOXIDE - CO2 28 mmol/L (21-32); CHLORIDE 103 mmol/L (101-111); CHOL/HDL RATIO 2.8 (<5.0); CHOLESTEROL 196 mg/dL; CREATININE 0.8 mg/dL (0.6-1.2); GFR - MDRD 103 (>89); GLUCOSE 103 mg/dL (70-100); HDL CHOLESTEROL 71 mg/dL; LDL CHOLESTEROL,CALCULATED 104 mg/dL; LDL/HDL RATIO 1.5 (<3.6); SODIUM 140 mmol/L (135-145); TOTAL PROTEIN 7.4 g/dL (6.7-8.2); VLDL CHOLESTEROL 21 mg/dL
== END 2018-08-02 12:00 | disposition home or self-care (01) ==
LOC: LAB.F 11:59
PROVIDERS: ATTEND Nurse Practitioner
DX: K70.0 Alcoholic fatty liver (principal); Z72.89 Other problems related to lifestyle
CPT/HCPCS: 36415; 80053; 80061; 83721; 85025

== ENCOUNTER 2018-10-25 10:56 | Outpatient (CLI) | payer MEDICAID ==
[2018-10-25 18:53] LABS: CHOL/HDL RATIO 2.7 (<5.0); CHOLESTEROL 187 mg/dL; HDL CHOLESTEROL 70 mg/dL; LDL CHOLESTEROL,CALCULATED 96 mg/dL; LDL/HDL RATIO 1.4 (<3.6); VLDL CHOLESTEROL 21 mg/dL
[2018-10-25 19:02] LABS: HB2 TOTAL 15.9 g/dL; HEMOGLOBIN A1C 0.52 g/dL; HEMOGLOBIN A1C % 5.1 % (4.6-6.2)
== END 2018-10-25 10:57 | disposition home or self-care (01) ==
LOC: LAB.S 10:56
PROVIDERS: ATTEND Registered Nurse
DX: K70.0 Alcoholic fatty liver (principal); Z72.89 Other problems related to lifestyle; Z13.29 Encounter for screening for other suspected endocrine disorder
CPT/HCPCS: 36415; 80061; 83036; 83721; 84443

== ENCOUNTER 2018-10-31 11:23 | Outpatient (CLI) | payer MEDICAID ==
[2018-10-31 17:14] LABS: BASOPHILS # (AUTO) 0.1 10^3/uL (0.0-0.1); BASOPHILS % (AUTO) 0.5 %; EOSINOPHILS # (AUTO) 0.2 10^3/uL (0.0-0.7); EOSINOPHILS % (AUTO) 1.9 %; HGB - HEMOGLOBIN 15.9 g/dL (14.0-18.0); LYMPHOCYTES # (AUTO) 1.7 10^3/uL (1.5-3.5); LYMPHOCYTES % (AUTO) 16.5 %; MEAN CORPUSCULAR HEMOGLOBIN 31.7 pg (27.0-31.0); MEAN CORPUSCULAR HGB CONC 32.1 g/dL (32.0-36.0); MEAN CORPUSCULAR VOLUME 98.8 fL (80.0-94.0); MEAN PLATELET VOLUME 10.6 fL (7.4-11.4); MONOCYTES # (AUTO) 0.8 10^3/uL (0.0-1.0); NEUTROPHILS # (AUTO) 7.6 10^3/uL (1.5-6.6); NEUTROPHILS % (AUTO) 72.5 %; PLT - PLATELET COUNT 202 10^3/uL (130-450); RED BLOOD COUNT 5.01 10^6/uL (4.70-6.10); RED CELL DISTRIBUTION WIDTH 12.9 % (12.0-15.0); WHITE BLOOD COUNT 10.4 x10^3/uL (4.8-10.8)
[2018-10-31 17:38] LABS: ALBUMIN 4.6 g/dL (3.2-5.5); ALBUMIN/GLOBULIN RATIO 1.4 (1.0-2.2); CALCIUM 9.8 mg/dL (8.5-10.3); CREATININE 0.7 mg/dL (0.6-1.2); TOTAL PROTEIN 7.8 g/dL (6.7-8.2)
== END 2018-10-31 11:24 | disposition home or self-care (01) ==
LOC: LAB.S 11:23
PROVIDERS: ATTEND Registered Nurse
DX: K70.0 Alcoholic fatty liver (principal); J44.9 Chronic obstructive pulmonary disease, unspecified; Z72.89 Other problems related to lifestyle
CPT/HCPCS: 36415; 80053; 85025

== ENCOUNTER 2019-03-22 12:43 | Outpatient (CLI) | payer MEDICAID ==
[2019-03-22 18:13] LABS: BASOPHILS # (AUTO) 0.1 10^3/uL (0.0-0.1); BASOPHILS % (AUTO) 0.7 %; EOSINOPHILS # (AUTO) 0.2 10^3/uL (0.0-0.7); EOSINOPHILS % (AUTO) 2.6 %; HGB - HEMOGLOBIN 15.3 g/dL (14.0-18.0); LYMPHOCYTES % (AUTO) 27.1 %; MEAN PLATELET VOLUME 10.5 fL (7.4-11.4); MONOCYTES # (AUTO) 0.8 10^3/uL (0.0-1.0); NEUTROPHILS # (AUTO) 4.2 10^3/uL (1.5-6.6); PLT - PLATELET COUNT 208 10^3/uL (130-450); RED BLOOD COUNT 4.93 10^6/uL (4.70-6.10); RED CELL DISTRIBUTION WIDTH 12.9 % (12.0-15.0); WHITE BLOOD COUNT 7.2 x10^3/uL (4.8-10.8)
[2019-03-22 18:37] LABS: ALBUMIN 4.6 g/dL (3.2-5.5); ALBUMIN/GLOBULIN RATIO 1.4 (1.0-2.2); CALCIUM 9.5 mg/dL (8.5-10.3); CREATININE 0.8 mg/dL (0.6-1.2); TOTAL PROTEIN 7.8 g/dL (6.7-8.2)
== END 2019-03-22 12:44 | disposition home or self-care (01) ==
LOC: LAB.S 12:43
PROVIDERS: ATTEND Registered Nurse
DX: F17.200 Nicotine dependence, unspecified, uncomplicated (principal); K70.0 Alcoholic fatty liver
CPT/HCPCS: 36415; 80053; 84153; 85025

== ENCOUNTER 2020-05-10 10:33 | Outpatient (CLI) | payer MEDICAID ==
[2020-05-10 15:00] LABS: BASOPHILS # (AUTO) 0.1 10^3/uL (0.0-0.1); BASOPHILS % (AUTO) 0.5 %; EOSINOPHILS # (AUTO) 0.2 10^3/uL (0.0-0.7); EOSINOPHILS % (AUTO) 1.8 %; HCT - HEMATOCRIT 49.1 % (42.0-52.0); HGB - HEMOGLOBIN 16.2 g/dL (14.0-18.0); LYMPHOCYTES # (AUTO) 2.1 10^3/uL (1.5-3.5); LYMPHOCYTES % (AUTO) 15.6 %; MEAN CORPUSCULAR HEMOGLOBIN 32.5 pg (27.0-31.0); MEAN CORPUSCULAR VOLUME 98.6 fL (80.0-94.0); MEAN PLATELET VOLUME 10.6 fL (7.4-11.4); MONOCYTES % (AUTO) 7.2 %; NEUTROPHILS # (AUTO) 10.1 10^3/uL (1.5-6.6); NEUTROPHILS % (AUTO) 74.5 %; PLT - PLATELET COUNT 202 10^3/uL (130-450); RED BLOOD COUNT 4.98 10^6/uL (4.70-6.10); RED CELL DISTRIBUTION WIDTH 12.7 % (12.0-15.0); WHITE BLOOD COUNT 13.5 x10^3/uL (4.8-10.8)
[2020-05-10 15:57] LABS: ALBUMIN 4.5 g/dL (3.2-5.5); ALBUMIN/GLOBULIN RATIO 1.3 (1.0-2.2); ALKALINE PHOSPHATASE 80 IU/L (42-121); ALT ALANINE AMINOTRANSFERASE 82 IU/L (10-60); AST ASPARTATE AMINOTRANSFERASE 121 IU/L (10-42); BILIRUBIN,TOTAL 1.3 mg/dL (0.2-1.0); BUN - BLOOD UREA NITROGEN 5 mg/dL (6-20); CALCIUM 9.6 mg/dL (8.5-10.3); CARBON DIOXIDE - CO2 25 mmol/L (21-32); CHLORIDE 104 mmol/L (101-111); CHOL/HDL RATIO 3.3 (<5.0); CHOLESTEROL 218 mg/dL; CREATININE 0.7 mg/dL (0.6-1.2); GFR - MDRD 119 (>89); GLUCOSE 120 mg/dL (70-100); HDL CHOLESTEROL 66 mg/dL; LDL CHOLESTEROL,CALCULATED 114 mg/dL; LDL/HDL RATIO 1.7 (<3.6); POTASSIUM 3.8 mmol/L (3.5-5.0); SODIUM 140 mmol/L (135-145); TRIGLYCERIDES 192 mg/dL; VLDL CHOLESTEROL 38 mg/dL
[2020-05-10 16:09] LABS: THYROID STIMULATING HORMONE 1.36 uIU/mL (0.34-5.60)
== END 2020-05-10 10:34 | disposition home or self-care (01) ==
LOC: LAB.S 10:33
PROVIDERS: ATTEND Registered Nurse
DX: R06.09 Other forms of dyspnea (principal); F17.200 Nicotine dependence, unspecified, uncomplicated; F41.9 Anxiety disorder, unspecified; K70.0 Alcoholic fatty liver; J44.9 Chronic obstructive pulmonary disease, unspecified; Z72.89 Other problems related to lifestyle; E78.5 Hyperlipidemia, unspecified; F32.9 Major depressive disorder, single episode, unspecified
CPT/HCPCS: 36415; 80053; 80061; 83721; 84153; 84443; 85025

== ENCOUNTER 2021-04-26 09:53 | Emergency (ER) | payer MEDICAID ==
[2021-04-26] MEDS ORDERED: THIAMINE INJ 100 MG, MAGNESIUM SULFATE 2 GM, MULTIVITAMIN 10 ML, FOLIC ACID INJ 1 MG in... IV ONE ×5 (10:26)
[2021-04-26] MEDS ORDERED: LORazepam 2 MG/ML VIAL IVP STA (10:26)
[2021-04-26 10:30] LABS: BASOPHILS # (AUTO) 0.1 10^3/uL (0.0-0.1); BASOPHILS % (AUTO) 0.6 %; EOSINOPHILS % (AUTO) 0.4 %; HCT - HEMATOCRIT 46.3 % (42.0-52.0); LYMPHOCYTES # (AUTO) 1.6 10^3/uL (1.5-3.5); LYMPHOCYTES % (AUTO) 14.3 %; MEAN CORPUSCULAR HEMOGLOBIN 32.8 pg (27.0-31.0); MEAN CORPUSCULAR HGB CONC 34.6 g/dL (32.0-36.0); MEAN CORPUSCULAR VOLUME 94.9 fL (80.0-94.0); MEAN PLATELET VOLUME 10.3 fL (7.4-11.4); MONOCYTES # (AUTO) 1.2 10^3/uL (0.0-1.0); MONOCYTES % (AUTO) 10.4 %; NEUTROPHILS # (AUTO) 8.4 10^3/uL (1.5-6.6); NEUTROPHILS % (AUTO) 73.9 %; PLT - PLATELET COUNT 237 10^3/uL (130-450); RED BLOOD COUNT 4.88 10^6/uL (4.70-6.10); RED CELL DISTRIBUTION WIDTH 12.1 % (12.0-15.0); WHITE BLOOD COUNT 11.4 x10^3/uL (4.8-10.8)
--- NOTE | 2021-04-26 10:30 | ED Physician Documentation ---
PD HPI NVD - Stated complaint Stated Complaint: ABD PAIN/BLOOD IN STOOL - Chief complaint Chief Complaint: Abd Pain - History obtained from History obtained from: Patient - History of Present Illness Timing - onset: How many days ago (2) Timing - duration: Days (2) Timing - details: Gradual onset, Still present Associated symptoms: Abdominal pain, Melena, Loss of appetite Contributing factors: Alcohol use Improved by: Vomiting, BM Similar symptoms before: Diagnosis (heart burn, ulcer, pancreatitis) Recently seen: Not recently seen - Additonal information Additional information: 51-year-old male with a history of alcoholism indicates that over the past month he has had migrating abdominal pains and over the past 2 days the pain is localized to the left lower quadrant in the epigastric area and he has had some nausea without vomiting he has had some diarrhea that he feels has some blood in it it is some rust color to it and is complaining of electrical shocks to his scalp and extremities. He describes his drinking as starting within an hour of awakening and generally 1-2 beers per hour. He states that after a warm up. He will have a little more beers per hour and then taper off. He does not know of the time he has been without alcohol for 4 days in the past 4 years. He has been in to see a neurologist at one time for electrical shocks going down his legs. He is not taking any vitamin supplementation he has had a reduced appetite and he has lost about 10 pounds. He describes some blurring of his vision as well. Review of Systems Constitutional: denies: Fever Eyes: denies: Decreased vision Ears: denies: Ear pain Nose: denies: Congestion Throat: denies: Sore throat Cardiac: denies: Chest pain / pressure, Palpitations Respiratory: denies: Dyspnea, Cough GI: reports: Abdominal Pain, Nausea, Vomiting, Diarrhea : denies: Dysuria, Frequency Skin: denies: Rash Musculoskeletal: reports: Back pain. denies: Neck pain Neurologic: denies: Generalized weakness, Focal weakness, Numbness PD PAST MEDICAL HISTORY - Past Medical History Past Medical History: Yes Respiratory: COPD GI: GERD Psych: Depression - Past Surgical History Past Surgical History: No - Present Medications Home Medications: Ambulatory Orders Medication Instructions Recorded Confirmed Omeprazole 20 mg PO DAILY 06/01/14 03/02/18 buPROPion [Wellbutrin Xl] 150 mg PO DAILY 06/01/14 03/02/18 Albuterol Sulfate [Proair Hfa] 1 puffs IS PRN PRN 08/20/14 03/02/18 Beclomethasone 40 Mcg [Qvar 40] 1 puffs IS PRN PRN 08/20/14 03/02/18 ALPRAZolam [Alprazolam] 0.5 tab PO PRN PRN 03/02/18 03/02/18 Aspirin [Adult Low Dose Aspirin EC] 81 mg PO DAILY #30 tablet. 03/02/18 Metoprolol Tartrate 25 mg PO DAILY #30 tablet 03/02/18 dexAMETHasone [Decadron] 4 mg PO DAILY #5 tablet 03/02/18 Hydrocodone/Acetaminophen [[place] 1 each PO Q6HR PRN #10 tablet 05/03/18 5-325 Tablet] Ondansetron Odt [Zofran] 4 mg TL Q6H PRN #20 tablet 07/20/18 Sucralfate [Carafate] 1 gm PO QPM #30 tablet 07/20/18 Metoprolol Succinate [Toprol Xl] 25 mg PO DAILY #30 tablet 04/26/21 Omeprazole 40 mg PO DAILY #30 cap 04/26/21 Tamsulosin [Flomax] 0.4 mg PO DAILY #30 cap 04/26/21 Thiamine [Vitamin B-1] 100 mg PO DAILY #30 tablet 04/26/21 chlordiazePOXIDE [Librium] 25 mg PO Q6H PRN #15 cap 04/26/21 - Allergies Allergies/Adverse Reactions: Allergies Allergy/AdvReac Type Severity Reaction Status Date / Time No Known Drug Allergies Allergy Verified 04/26/21 10:02 - Social History Does the pt smoke?: Yes Smoking Status: Current every day smoker Does the pt drink ETOH?: Yes Does the pt have substance abuse?: Yes - Immunizations Immunizations are current?: Yes - POLST Patient has POLST: No PD ED PE NORMAL - Vitals Vital signs reviewed: Yes - General General: Alert and oriented X 3, No acute distress, Well developed/nourished, Other (Thin 51 y/o male appears older than stated age appears mildly anxious) - HEENT HEENT: Atraumatic, PERRL, EOMI, Other (dysconjugate gaze with EOM testing) - Neck Neck: Supple, no meningeal sign, No bony TTP - Cardiac Cardiac: No murmur, Other (tachy to 120) - Respiratory Respiratory: No respiratory distress, Clear bilaterally - Abdomen Abdomen: Normal bowel sounds, Soft, Non distended, No organomegaly, Other (Mild left lower quadrant tenderness to palpation no guarding.) - Derm Derm: Normal color, Warm and dry, No rash - Extremities Extremities: No deformity, No edema - Neuro Neuro: Alert and oriented X 3, 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, No motor deficit, No sensory deficit, Normal speech Eye Opening: Spontaneous Motor: Obeys Commands Verbal: Oriented GCS Score: 15 - Psych Psych: Normal mood, Normal affect Results - Vitals Vitals: Vital Signs - 24 hr 04/26/21 04/26/21 04/26/21 09:56 10:15 12:01 Temperature 36.3 C L Heart Rate 121 H 100 94 Respiratory 20 16 18 Rate Blood Pressure 163/102 H 157/102 H 133/77 H O2 Saturation 96 100 96 Oxygen O2 Source Room air - EKG (time done) 1030 Rate: Rate (enter#) (102) Rhythm: Sinus tachycardia Ischemia: Normal ST segments Compare to prior EKG: Changed from prior EKG (SPT the rate has increased) Computer interpretation: Agree with computer - Labs Labs: Microbiology 04/26/21 10:37 Occult Blood - Final Stool Laboratory Tests 04/26/21 04/26/21 04/26/21 10:12 10:12 10:15 WBC 11.4 H RBC 4.88 Hgb 16.0 Hct 46.3 MCV 94.9 H MCH 32.8 H MCHC 34.6 RDW 12.1 Plt Count 237 MPV 10.3 Neut # (Auto) 8.4 H Lymph # (Auto) 1.6 Gove # (Auto) 1.2 H Eos # (Auto) 0.0 Baso # (Auto) 0.1 Absolute Nucleated RBC 0.00 Nucleated RBC % 0.0 Sodium 134 L Potassium 3.3 L Chloride 97 L Carbon Dioxide 22 Anion Gap 15.0 H BUN 6 Creatinine 0.8 Estimated GFR (MDRD) 102 Glucose 125 H Lactic Acid Calcium 9.5 Magnesium 1.8 Total Bilirubin 1.3 H AST 61 H ALT 49 Alkaline Phosphatase 68 Total Protein 8.3 H Albumin 5.0 Globulin 3.3 Albumin/Globulin Ratio 1.5 Lipase 43 Urine Color DARK YELLOW Urine Clarity CLEAR Urine pH 6.0 Ur Specific [place] >=1.030 H Urine Protein 30 H Urine Glucose (UA) NEGATIVE Urine Ketones 15 H Urine Occult Blood NEGATIVE Urine Nitrite NEGATIVE Urine Bilirubin NEGATIVE Urine Urobilinogen 0.2 (NORMAL) Ur Leukocyte Esterase NEGATIVE Urine RBC None Seen Urine WBC 0-3 Ur Squamous Epith Cells RARE Squamous Urine Bacteria Rare Urine Mucus Few Strands Ur Microscopic Review INDICATED Urine Culture Comments NOT INDICATED Urine Opiates Screen Ur Oxycodone Screen Urine Methadone Screen Ur Propoxyphene Screen Ur Barbiturates Screen Ur Tricyclics Screen Ur Phencyclidine Scrn Ur Amphetamine Screen U Methamphetamines Scrn U Benzodiazepines Scrn Urine Cocaine Screen U Cannabinoids Screen Ethyl Alcohol < 5.0 04/26/21 04/26/21 10:15 10:32 WBC RBC Hgb Hct MCV MCH MCHC RDW Plt Count MPV Neut # (Auto) Lymph # (Auto) Gove # (Auto) Eos # (Auto) Baso # (Auto) Absolute Nucleated RBC Nucleated RBC % Sodium Potassium Chloride Carbon Dioxide Anion Gap BUN Creatinine Estimated GFR (MDRD) Glucose Lactic Acid 1.8 Calcium Magnesium Total Bilirubin AST ALT Alkaline Phosphatase Total Protein Albumin Globulin Albumin/Globulin Ratio Lipase Urine Color Urine Clarity Urine pH Ur Specific [place] Urine Protein Urine Glucose (UA) Urine Ketones Urine Occult Blood Urine Nitrite Urine Bilirubin Urine Urobilinogen Ur Leukocyte Esterase Urine RBC Urine WBC Ur Squamous Epith Cells Urine Bacteria Urine Mucus Ur Microscopic Review Urine Culture Comments Urine Opiates Screen POSITIVE H Ur Oxycodone Screen NEGATIVE Urine Methadone Screen NEGATIVE Ur Propoxyphene Screen NEGATIVE Ur Barbiturates Screen NEGATIVE Ur Tricyclics Screen NEGATIVE Ur Phencyclidine Scrn NEGATIVE Ur Amphetamine Screen NEGATIVE U Methamphetamines Scrn NEGATIVE U Benzodiazepines Scrn NEGATIVE Urine Cocaine Screen NEGATIVE U Cannabinoids Screen POSITIVE H Ethyl Alcohol - Rads (name of study) CT ab/pel Radiology: Prelim report reviewed (Impression: 1. No acute inflammatory process is identified. No free fluid. No hydronephrosis. Bladder wall thickness is prominent. Hepatic steatosis.), EMP read indepedently, See rad report Procedures - IVC sono (time) 1028 Bedside IVC sono: IVC measures (cm) (0.97), Dehydration (est >1 liter deficit) PD MEDICAL DECISION MAKING - ED course Complexity details: reviewed old records, reviewed results, re-evaluated patient, considered differential, d/w patient ED course: 51-year-old alcoholic male had his last drink at 9 PM yesterday he is used to having about 4 beers by this time in the morning. He is reporting increased abdominal pain nausea and diarrhea which she feels has blood in it. His female found to be mildly dehydrated on interrogation the inferior vena cava and he does have some disconjugate gaze on extraocular movement testing. I suspect he may be in the early stages of Wernicke's. He is administered in intravenous banana bag and a milligram of Ativan intravenously. A CT scan of the abdomen pelvis with contrast is ordered as well as blood work. Departure - Departure Disposition: 01 Home, Self Care Clinical Impression: Alcoholism Alcohol withdrawal Qualifiers: Complication of substance-induced condition: uncomplicated Qualified Code(s): F10.230 - Alcohol dependence with withdrawal, uncomplicated GI bleeding Qualifiers: GI bleed type/associated pathology: unspecified gastrointestinal hemorrhage type Qualified Code(s): K92.2 - Gastrointestinal hemorrhage, unspecified Condition: Stable Instructions: ED Bleed UGI Stable, ED Hematochezia Stable, ED Withdrawal Alcohol Follow-Up: Aniya Hightower ARNP [Primary Care Provider] - Prescriptions: Tamsulosin [Flomax] 0.4 mg PO DAILY #30 cap chlordiazePOXIDE [Librium] 25 mg PO Q6H PRN #15 cap PRN Reason: alcoholwithdrawal Omeprazole 40 mg PO DAILY #30 cap Metoprolol Succinate [Toprol Xl] 25 mg PO DAILY #30 tablet Thiamine [Vitamin B-1] 100 mg PO DAILY #30 tablet Comments: Giovanny, today it looks like you have had some blood out in your stool and you have stable blood counts and this is expected to resolve with cessation of alcohol consumption. In order to achieve this you will need to have medication for alcohol withdrawal. When you drink on a regular basis your nerves begin to fire faster and when you take the alcohol away they still fire faster. Your body will adjust over a period of 4 to 5 days. In order to substitute for the alcohol I have prescribed some Librium to take on a tapered schedule. The taper will be written on the bottle. You may need a fair amount of this medicine the first day. Taken off to help with your symptoms. In addition we found that your bladder wall was thickened consistent with a problem with your prostate and I have written a prescription for some tamsulosin. Over a period of 1 to 3 weeks this should improve your stream. I have refilled your metoprolol XL and your omeprazole as well. Your prescriptions have been E scribed to [facility] in [place]. Follow-up with Wendy Hightower in the next 1 to 3 weeks. An important medication for you in particular at this stage of your alcoholism is the thiamine. This will prevent degeneration of your brain. I have recommended you take this regularly for 1 month.
[2021-04-26 10:40] LABS: ALBUMIN/GLOBULIN RATIO 1.5 (1.0-2.2); ALKALINE PHOSPHATASE 68 IU/L (42-121); ALT ALANINE AMINOTRANSFERASE 49 IU/L (10-60); AST ASPARTATE AMINOTRANSFERASE 61 IU/L (10-42); BILIRUBIN,TOTAL 1.3 mg/dL (0.2-1.0); BUN - BLOOD UREA NITROGEN 6 mg/dL (6-20); CALCIUM 9.5 mg/dL (8.5-10.3); CARBON DIOXIDE - CO2 22 mmol/L (21-32); CHLORIDE 97 mmol/L (101-111); CREATININE 0.8 mg/dL (0.6-1.2); ETOH - ETHANOL < 5.0 mg/dL; GFR - MDRD 102 (>89); GLUCOSE 125 mg/dL (70-100); LIPASE 43 U/L (22-51); MAGNESIUM 1.8 mg/dL (1.7-2.8); POTASSIUM 3.3 mmol/L (3.5-5.0); SODIUM 134 mmol/L (135-145); TOTAL PROTEIN 8.3 g/dL (6.7-8.2)
[2021-04-26] MEDS ORDERED: METOPROLOL SUCCINATE 25 MG TABLET PO STA (10:41)
--- NOTE | 2021-04-26 10:51 | XRAY Report ---
PROCEDURE: Chest 1 View X-Ray INDICATIONS: chest pain TECHNIQUE: One view of the chest was acquired. COMPARISON: Lung bases on CT 05/03/2018. FINDINGS: Surgical changes and devices: None. Lungs and pleura: No pleural effusions or pneumothorax. Lungs are clear. Mediastinum: Mediastinal contours appear normal. Heart size is normal. Bones and chest wall: No suspicious bony lesions. Overlying soft tissues appear unremarkable. IMPRESSION: No acute cardiopulmonary abnormality. Reviewed by: Chang Toney MD on 04/26/2021 9:50 AM [facility] Approved by: Chang Toney MD on 04/26/2021 9:50 AM [facility] Station ID: [id number]
[2021-04-26 10:56] LABS: MUDS CUTOFF CONCENTRATIONS CUTOFF CONC BELOW:
[2021-04-26 10:58] LABS: BILIRUBIN,URINE NEGATIVE (NEGATIVE); CLARITY,URINE CLEAR (CLEAR); GLUCOSE, URINE (UA) NEGATIVE (NEGATIVE); ICTOTEST,URINE NEGATIVE; KETONES,URINE (UA) 15 mg/dL (NEGATIVE); LEUKOCYTE ESTERASE, URINE NEGATIVE (NEGATIVE); NITRITE,URINE NEGATIVE (NEGATIVE); OCCULT BLOOD,URINE NEGATIVE (NEGATIVE); PROTEIN,URINE 30 mg/dL (NEGATIVE); UROBILINOGEN,URINE 0.2 (NORMAL) E.U./dL (NORMAL)
[2021-04-26 10:59] LABS: BACTERIA,URINE Rare /HPF (None Seen); RBC,URINE None Seen /HPF (0-5); SQUAMOUS EPITHELIAL CELL,UR RARE Squamous (<= Few); WBC,URINE 0-3 /HPF (0-3)
[2021-04-26 11:00] LABS: MUCUS,URINE Few Strands
[2021-04-26 11:07] LABS: AMPHETAMINE SCREEN,URINE NEGATIVE (NEGATIVE); BARBITURATE SCREEN,UR NEGATIVE (NEGATIVE); BENZODIAZEPINES SCREEN, URINE NEGATIVE (NEGATIVE); COCAINE SCREEN URINE NEGATIVE (NEGATIVE); METHADONE SCREEN, URINE NEGATIVE (NEGATIVE); METHAMPHETAMINES SCREEN, URINE NEGATIVE (NEGATIVE); OPIATE SCREEN, URINE POSITIVE (NEGATIVE); OXYCODONE SCREEN, URINE NEGATIVE (NEGATIVE); PROPOXYPHENE SCREEN, URINE NEGATIVE (NEGATIVE); THC CANNABINOID SCREEN, URINE POSITIVE (NEGATIVE); TRICYCLIC ANTIDEPRESSANT,URINE NEGATIVE (NEGATIVE)
[2021-04-26] MEDS ORDERED: IOVERSOL 320 100 ML VIAL IVP ONE ×2 (11:10→11:32)
--- NOTE | 2021-04-26 11:54 | CT Report ---
PROCEDURE: Abdomen/Pelvis W INDICATIONS: LLQ pain CONTRAST: IV CONTRAST: Isovue 300 ml: 100 PO CONTRAST: *NO PO CONTRAST TECHNIQUE: After the administration of intravenous contrast, 5 mm thick sections acquired from the diaphragms to the symphysis. 5 mm thick coronal and sagittal reformats were acquired. For radiation dose reducti on, the following was used: automated exposure control, adjustment of mA and/or kV according to lashon ent size. COMPARISON: CT abdomen pelvis 05/03/2018. FINDINGS: Image quality: Excellent. ABDOMEN: Lung bases: Lung bases are clear. Heart size is normal. Solid organs: Liver and spleen are normal in size. Hepatic steatosis. No focal lesion. Gallbladder i s unremarkable. Biliary system is non dilated. Pancreas enhances normally. No adrenal nodules. Ki dneys demonstrate normal size and enhancement, without hydronephrosis. Peritoneum and bowel: Stomach is not distended. Bowel loops demonstrate normal wall thickness and ca liber. Appendix is not distended. No free fluid or air. Nodes and vessels: No retroperitoneal or mesenteric adenopathy by size criteria. Aorta and inferior vena cava are normal in size. Moderate aortoiliac atherosclerotic plaque. Miscellaneous: No ventral hernias. PELVIS: Genitourinary: Bladder wall thickness is prominent. Miscellaneous: No inguinal hernias or adenopathy. Bones: No suspicious bony lesions. No vertebral body compression fractures. Mild degenerative correa e. IMPRESSION: 1. No acute inflammatory process is identified. No free fluid. 2. No hydronephrosis. Bladder wall thickness is prominent. 3. Hepatic steatosis. Reviewed by: Chang Toney MD on 04/26/2021 10:52 AM [facility] Approved by: Chang Toney MD on 04/26/2021 10:52 AM [facility] Station ID: [id number]
[2021-04-26 13:59] VITALS: BP 130/72
== END 2021-04-26 13:58 | disposition home or self-care (01) ==
LOC: ED 09:53
DX: K92.2 Gastrointestinal hemorrhage, unspecified (principal); F10.230 Alcohol dependence with withdrawal, uncomplicated; F17.200 Nicotine dependence, unspecified, uncomplicated
CPT/HCPCS: 36415; 71045; 74177; 80053; 80306; 80320; 81001; 82272; 83605; 83690; 83735; 85025; 93005; 96365; 96375; 99284; 99285; A9270; J2060; J3411; Q9967; 81003; 82274; 87086

== ENCOUNTER 2021-08-28 09:40 | Emergency (ER) | payer MEDICAID ==
[2021-08-28 09:50] VITALS: BP 134/80
--- NOTE | 2021-08-28 10:25 | XRAY Report ---
PROCEDURE: Knee 4 View LT INDICATIONS: Trauma TECHNIQUE: 4 views of the left knee(s) were acquired. COMPARISON: None. FINDINGS: Bones: No fractures or dislocations. No suspicious bony lesions. Soft tissues: Moderate-sized joint effusion. No suspicious soft tissue calcifications. IMPRESSION: Moderate size joint effusion in the absence of visible fracture may indicate internal de rangement. Consider MR if no improvement with conservative management. Reviewed by: Siomara Suero MD on 08/28/2021 10:24 AM PDT Approved by: Siomara Suero MD on 08/28/2021 10:24 AM PDT Station ID: [id number]
--- NOTE | 2021-08-28 10:41 | ED Physician Documentation ---
PD HPI LOWER EXT INJURY - Stated complaint Stated Complaint: L KNEE PAIN - Chief complaint Chief Complaint: Ext Problem - History obtained from History obtained from: Patient - History of Present Illness PD HPI LOW EXT INJURY LOCATION: Left, Knee Type of injury: Twist (he was lifting medium weight object and pivoted to place it down and felt pain in knee. Has had swelling and pain, feels unreliable, but no giving out.) Timing - onset: How many months ago (1) Timing - details: Abrupt onset, Still present, Waxing and waning Worsened by: Moving, Other (torsional movement, up/down steps mostly.) Associated symptoms: Swelling. No: Weakness, Numbness Similar symptoms before: No diagnosis (presumes meniscal injury.) Recently seen: Not recently seen Review of Systems Skin: denies: Rash, Lesions, Abrasion (s), Laceration (s) Neurologic: denies: Focal weakness, Numbness PD PAST MEDICAL HISTORY - Past Medical History Respiratory: COPD GI: GERD Psych: Depression - Past Surgical History Past Surgical History: No - Present Medications Home Medications: Ambulatory Orders Medication Instructions Recorded Confirmed Omeprazole 20 mg PO DAILY 06/01/14 03/02/18 buPROPion [Wellbutrin Xl] 150 mg PO DAILY 06/01/14 03/02/18 Albuterol Sulfate [Proair Hfa] 1 puffs IS PRN PRN 08/20/14 03/02/18 Beclomethasone 40 Mcg [Qvar 40] 1 puffs IS PRN PRN 08/20/14 03/02/18 ALPRAZolam [Alprazolam] 0.5 tab PO PRN PRN 03/02/18 03/02/18 Aspirin [Adult Low Dose Aspirin EC] 81 mg PO DAILY #30 tablet. 03/02/18 Metoprolol Tartrate 25 mg PO DAILY #30 tablet 03/02/18 dexAMETHasone [Decadron] 4 mg PO DAILY #5 tablet 03/02/18 Hydrocodone/Acetaminophen [[place] 1 each PO Q6HR PRN #10 tablet 05/03/18 5-325 Tablet] Ondansetron Odt [Zofran] 4 mg TL Q6H PRN #20 tablet 07/20/18 Sucralfate [Carafate] 1 gm PO QPM #30 tablet 07/20/18 Metoprolol Succinate [Toprol Xl] 25 mg PO DAILY #30 tablet 04/26/21 Omeprazole 40 mg PO DAILY #30 cap 04/26/21 Tamsulosin [Flomax] 0.4 mg PO DAILY #30 cap 04/26/21 Thiamine [Vitamin B-1] 100 mg PO DAILY #30 tablet 04/26/21 chlordiazePOXIDE [Librium] 25 mg PO Q6H PRN #15 cap 04/26/21 Famotidine [Pepcid] 20 mg PO DAILY #20 tablet 08/28/21 HYDROcod/ACETAM 5/325 [[place] 5/325] 1 ea PO Q6H PRN #18 tablet 08/28/21 Meloxicam [Mobic] 7.5 mg PO BID 10 Days #20 tablet 08/28/21 - Allergies Allergies/Adverse Reactions: Allergies Allergy/AdvReac Type Severity Reaction Status Date / Time No Known Drug Allergies Allergy Verified 08/28/21 09:50 - Social History Does the pt smoke?: Yes Smoking Status: Current every day smoker Does the pt drink ETOH?: Yes Does the pt have substance abuse?: Yes - Immunizations Immunizations are current?: Yes - POLST Patient has POLST: No PD ED PE NORMAL - Vitals Vital signs reviewed: Yes - General General: Alert and oriented X 3, No acute distress, Well developed/nourished - Derm Derm: Normal color, Warm and dry - Extremities Extremities: No edema, No calf tenderness / cord, Other (left knee with mild effusion. Tender medial joint line and does not shift with ROM of the knee, so more MCL. Pain with valgus stress but no widening. Cruciates normal testing. Pain with impacted rotation of knee. ) - Neuro Neuro: Alert and oriented X 3, No motor deficit, No sensory deficit Results - Vitals Vitals: Vital Signs - 24 hr 08/28/21 09:47 Temperature 36.8 C Heart Rate 89 Respiratory 16 Rate Blood Pressure 134/80 H O2 Saturation 98 Oxygen O2 Source Room air - Rads (name of study) knee Radiology: Prelim report reviewed (moderate joint effusion, no fractures), See rad report PD MEDICAL DECISION MAKING - ED course Complexity details: reviewed results (moderate joint effusion. No fractures. ), considered differential (seems likely meniscal but does have element of MCL strain. Has had it for few weeks, so add knee brace and NSAIDs and f/u ortho. ), d/w patient Departure - Departure Disposition: 01 Home, Self Care Clinical Impression: Acute knee pain Qualifiers: Laterality: left Qualified Code(s): M25.562 - Pain in left knee Condition: Stable Record reviewed to determine appropriate education?: Yes Instructions: ED Meniscal Injury Knee Poss, ED Sprain Knee Collateral Ligaments Follow-Up: Aniya Hightower ARNP [Primary Care Provider] - [facility] [Provider Group] Prescriptions: Meloxicam [Mobic] 7.5 mg PO BID 10 Days #20 tablet HYDROcod/ACETAM 5/325 [[place] 5/325] 1 ea PO Q6H PRN #18 tablet PRN Reason: Pain Famotidine [Pepcid] 20 mg PO DAILY #20 tablet Comments: Your x-ray appears normal. Most knee injuries actually are soft tissue such as ligaments and cartilage. On exam your problems seem to be in injury of the medial collateral ligament (MCL) and possibly the medial meniscus/cartilage. These will get treated with a knee brace to reduce the amount of rotational movement in the knee. Wear it when up and around. We can change anti-inflammatories from the ibuprofen to meloxicam and add in famotidine to help protect your stomach from irritation. To that add Tylenol or hydrocodone if needed for pain. Follow-up with the orthopedic office, call today for an appointment for likely next week. They can decide how much better you have gotten with the above treatments and decide further treatment or evaluation options at that point. I transmitted prescriptions to [facility] in [place]. I am prescribing a short course of narcotic pain medication for you. These are potentially dangerous and addictive medications that should be used carefully. These medications may constipate you. Take an [id number] stool softener such as docusate twice daily with plenty of water while taking these medications. If you go 24 hours without a bowel movement, take [id number] MiraLAX, per package instructions. Do not drink or drive while taking these medications. If you received narcotic or sedating medications while in the emergency department do not drive for 24 hours. Store this medication in a safe, secure place and out of reach of children. It is a violation of federal law to give or sell this medication to another person or to use in a manner other than prescribed. The ED will not refill narcotic prescriptions, including prescriptions lost or stolen. You can dispose of unwanted medications at the [facility]'s office or at several pharmacies such as [facility]. Discharge Date/Time: 08/28/21 11:25
[2021-08-28] MEDS ORDERED: oxyCODONE 5 MG TABLET PO STA (10:59)
[2021-08-28] MEDS ORDERED: NAPROXEN 250 MG TABLET PO STA (11:00)
== END 2021-08-28 11:25 | disposition home or self-care (01) ==
LOC: ED 09:40
DX: M25.562 Pain in left knee (principal); F17.200 Nicotine dependence, unspecified, uncomplicated
CPT/HCPCS: 73564; 99283; A9270

== ENCOUNTER 2021-09-02 08:51 | Outpatient (CLI) | payer MEDICAID ==
[2021-09-02 15:04] LABS: BASOPHILS # (AUTO) 0.1 10^3/uL (0.0-0.1); BASOPHILS % (AUTO) 0.5 %; EOSINOPHILS # (AUTO) 0.2 10^3/uL (0.0-0.7); EOSINOPHILS % (AUTO) 2.2 %; HCT - HEMATOCRIT 43.7 % (42.0-52.0); LYMPHOCYTES # (AUTO) 2.3 10^3/uL (1.5-3.5); LYMPHOCYTES % (AUTO) 20.7 %; MEAN CORPUSCULAR HEMOGLOBIN 30.6 pg (27.0-31.0); MEAN CORPUSCULAR VOLUME 95.4 fL (80.0-94.0); MEAN PLATELET VOLUME 10.6 fL (7.4-11.4); MONOCYTES # (AUTO) 0.7 10^3/uL (0.0-1.0); MONOCYTES % (AUTO) 6.1 %; NEUTROPHILS # (AUTO) 7.7 10^3/uL (1.5-6.6); NEUTROPHILS % (AUTO) 70.2 %; PLT - PLATELET COUNT 247 10^3/uL (130-450); RED BLOOD COUNT 4.58 10^6/uL (4.70-6.10); RED CELL DISTRIBUTION WIDTH 12.8 % (12.0-15.0); WHITE BLOOD COUNT 10.9 x10^3/uL (4.8-10.8)
[2021-09-02 15:22] LABS: ALBUMIN 4.4 g/dL (3.2-5.5); ALBUMIN/GLOBULIN RATIO 1.6 (1.0-2.2); ALKALINE PHOSPHATASE 45 IU/L (42-121); ALT ALANINE AMINOTRANSFERASE 16 IU/L (10-60); AST ASPARTATE AMINOTRANSFERASE 22 IU/L (10-42); BILIRUBIN,TOTAL 0.8 mg/dL (0.2-1.0); BUN - BLOOD UREA NITROGEN 8 mg/dL (6-20); CALCIUM 9.4 mg/dL (8.5-10.3); CARBON DIOXIDE - CO2 29 mmol/L (21-32); CHLORIDE 102 mmol/L (101-111); CHOL/HDL RATIO 3.8 (<5.0); CHOLESTEROL 145 mg/dL; CREATININE 0.8 mg/dL (0.6-1.2); GFR - MDRD 102 (>89); GLUCOSE 108 mg/dL (70-100); HDL CHOLESTEROL 38 mg/dL; LDL CHOLESTEROL,CALCULATED 87 mg/dL; LDL/HDL RATIO 2.3 (<3.6); POTASSIUM 4.2 mmol/L (3.5-5.0); SODIUM 138 mmol/L (135-145); TOTAL PROTEIN 7.2 g/dL (6.7-8.2); TRIGLYCERIDES 98 mg/dL; VLDL CHOLESTEROL 20 mg/dL
[2021-09-02 15:30] LABS: THYROID STIMULATING HORMONE 0.85 uIU/mL (0.34-5.60)
== END 2021-09-02 08:52 | disposition home or self-care (01) ==
LOC: LAB.S 08:51
PROVIDERS: ATTEND Registered Nurse
DX: E78.5 Hyperlipidemia, unspecified (principal); R74.8 Abnormal levels of other serum enzymes; Z79.899 Other long term (current) drug therapy; Z13.29 Encounter for screening for other suspected endocrine disorder
CPT/HCPCS: 36415; 80050; 80061; 83721

== ENCOUNTER 2021-09-08 08:00 | Outpatient (CLI) | payer MEDICAID ==
--- NOTE | 2021-09-08 14:57 | XRAY Report ---
PROCEDURE: Knee 3 View LT INDICATIONS: KNEE PAIN TECHNIQUE: 3 views of the left knee(s) were acquired. COMPARISON: Left knee radiographs 08/28/2021. FINDINGS: Bones: No fractures or dislocations. No suspicious bony lesions. Possible/equivocal minimal medial and lateral compartment joint space narrowing of both knees. Soft tissues: A left knee joint effusion is present as before, similar to slightly decreased. No edwin picious soft tissue calcifications. IMPRESSION: 1. No acute fracture visualized. 2. Redemonstrated left knee joint effusion, similar to slightly decreased. 3. Equivocal minimal degenerative changes of both knees. Reviewed by: Hussain Jolley MD on 09/08/2021 2:56 PM PDT Approved by: Hussain Jolley MD on 09/08/2021 2:56 PM PDT Station ID: [id number]
== END 2021-09-08 23:59 | disposition home or self-care (01) ==
LOC: DI.WOS 08:00
PROVIDERS: ATTEND Physician Assistant Surgical
DX: S83.412D Sprain of medial collateral ligament of left knee, subsequent encounter (principal); M25.462 Effusion, left knee

== ENCOUNTER 2022-07-07 06:55 | Outpatient (CLI) | payer MEDICAID ==
--- NOTE | 2022-07-07 08:23 | Ultrasound Report ---
PROCEDURE: Aorta Screening INDICATIONS: TOBACCO ABUSE, PAIN IN SCROTUM TECHNIQUE: Real time scanning was performed of the aorta and iliac arteries, with image documentatio n. COMPARISON: None. FINDINGS: Aorta: Proximal aortic diameter measures 2.8 x 2.7 cm. Mid-aorta measures 2.0 x 2.1 cm. Distal aor tic diameter is 2.1 x 1.9 cm. Iliac arteries: Right common iliac artery measures 1.1 x 1.1 cm. Left common iliac artery measures 1.4 x 1.1 cm. There is atherosclerosis. IMPRESSION: No abdominal aortic aneurysm. Proximal aortic ectasia, consider 5 year follow-up. Reviewed by: Syd Schofield MD on 07/07/2022 8:21 AM PDT Approved by: Syd Schofield MD on 07/07/2022 8:21 AM PDT Station ID: [id number]
--- NOTE | 2022-07-07 10:08 | CT Report ---
PROCEDURE: Low Dose Lung Cancer Screen INDICATIONS: TOBACCO ABUSE, PAIN IN SCROTUM TECHNIQUE: Noncontrast low-dose axial images were acquired from the pulmonary apices to the posterior costophren ic angles. Multiplanar MIP reformats were then reconstructed. For radiation dose reduction, the follo wing was used: automated exposure control, adjustment of mA and/or kV according to patient size. COMPARISON: None. FINDINGS: Image quality: Excellent. Prior cancer history: No. Lungs and pleura: No pleural effusions. No pneumothorax. 6 to 7 mm groundglass nodule, right upper l obe (series 4, image 131). Mediastinum: Heart size is normal. No pericardial effusions. No mediastinal adenopathy by size criter ia. No large vessel abnormality. Three vessel coronary artery calcifications. Chest wall and lower neck: Thyroid is unremarkable. No axillary or supraclavicular adenopathy by size . Bones: No aggressive osseous abnormality. Low bone mineralization by Hounsfield units criteria. Upper Abdomen: Unremarkable. IMPRESSION: Lung RAD: 2 - Benign. Recommendation: Continue annual screening in 12 Months with LDCT Non-Lung Significant Findings: Coronary Arterial Calcification - Moderate or Severe. Recommend cardio logy referral. Low bone mineralization by Hounsfield units criteria. Consider DEXA scan for confirmation. Reviewed by: Abiodun Sanchez on 07/07/2022 9:07 AM [facility] Approved by: Abiodun Sanchez on 07/07/2022 9:07 AM [facility] Station ID: [id number]
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
== END 2022-07-07 06:56 | disposition home or self-care (01) ==
LOC: DI 06:55
PROVIDERS: ATTEND Registered Nurse
DX: Z12.2 Encounter for screening for malignant neoplasm of respiratory organs (principal); Z13.6 Encounter for screening for cardiovascular disorders; I25.10 Atherosclerotic heart disease of native coronary artery without angina pectoris; I77.819 Aortic ectasia, unspecified site; N50.82 Scrotal pain; N50.3 Cyst of epididymis; F17.210 Nicotine dependence, cigarettes, uncomplicated

== ENCOUNTER 2023-06-28 10:42 | Outpatient (CLI) | payer MEDICAID ==
[2023-06-28 14:32] LABS: BASOPHILS # (AUTO) 0.1 10^3/uL (0.0-0.1); BASOPHILS % (AUTO) 0.8 %; EOSINOPHILS # (AUTO) 0.2 10^3/uL (0.0-0.7); EOSINOPHILS % (AUTO) 2.5 %; HCT - HEMATOCRIT 47.7 % (42.0-52.0); HGB - HEMOGLOBIN 16.1 g/dL (14.0-18.0); LYMPHOCYTES # (AUTO) 2.2 10^3/uL (1.5-3.5); LYMPHOCYTES % (AUTO) 30.1 %; MEAN CORPUSCULAR HEMOGLOBIN 32.9 pg (27.0-31.0); MEAN CORPUSCULAR HGB CONC 33.8 g/dL (32.0-36.0); MEAN CORPUSCULAR VOLUME 97.5 fL (80.0-94.0); MEAN PLATELET VOLUME 10.3 fL (7.4-11.4); MONOCYTES % (AUTO) 13.5 %; NEUTROPHILS # (AUTO) 3.9 10^3/uL (1.5-6.6); NEUTROPHILS % (AUTO) 52.8 %; PLT - PLATELET COUNT 206 10^3/uL (130-450); RED BLOOD COUNT 4.89 10^6/uL (4.70-6.10); RED CELL DISTRIBUTION WIDTH 12.6 % (12.0-15.0); WHITE BLOOD COUNT 7.3 x10^3/uL (4.8-10.8)
[2023-06-28 14:48] LABS: ALBUMIN 4.7 g/dL (3.2-5.5); ALBUMIN/GLOBULIN RATIO 1.6 (1.0-2.2); ALKALINE PHOSPHATASE 79 IU/L (42-121); ALT ALANINE AMINOTRANSFERASE 104 IU/L (10-60); AST ASPARTATE AMINOTRANSFERASE 166 IU/L (10-42); BILIRUBIN,TOTAL 0.9 mg/dL (0.2-1.0); BUN - BLOOD UREA NITROGEN 2 mg/dL (6-20); CALCIUM 10.2 mg/dL (8.5-10.3); CARBON DIOXIDE - CO2 28 mmol/L (21-32); CHLORIDE 99 mmol/L (101-111); CHOL/HDL RATIO 1.9 (<5.0); CHOLESTEROL 191 mg/dL; CREATININE 0.7 mg/dL (0.6-1.3); GFR - MDRD 118 (>89); GLUCOSE 91 mg/dL (74-104); HDL CHOLESTEROL 99 mg/dL; LDL CHOLESTEROL,CALCULATED 73 mg/dL; LDL/HDL RATIO 0.7 (<3.6); POTASSIUM 4.4 mmol/L (3.5-4.5); SODIUM 137 mmol/L (135-145); TOTAL PROTEIN 7.7 g/dL (6.4-8.9); TRIGLYCERIDES 94 mg/dL (48-352); VLDL CHOLESTEROL 19 mg/dL
== END 2023-06-28 10:43 | disposition home or self-care (01) ==
LOC: LAB.S 10:42
PROVIDERS: ATTEND Registered Nurse
DX: E78.5 Hyperlipidemia, unspecified (principal); Z79.899 Other long term (current) drug therapy; N40.0 Benign prostatic hyperplasia without lower urinary tract symptoms
CPT/HCPCS: 36415; 80053; 80061; 83721; 84153; 85025